=== PATIENT | male | born 1940 | race Two or more races ===

== ENCOUNTER 2025-02-08 00:46 | Inpatient (IN) | payer OTHER ==
[~2025-02-08] VITALS: Ht 167.6 cm; Wt 70.3 kg
--- NOTE | 2025-02-08 00:56 | NUR ---
PTE ALERTA Y ORIENTADO X3. TRANSFER DEL [facility] ACEPTADO POR PARA OPERACION DE VISICULA .
--- NOTE | 2025-02-08 02:11 | NUR ---
SE NOTIFICA A FARA.CROW HAYESA KRISTINE.
[2025-02-08] MEDS ORDERED: RINGERS SOLUTION,LACTATED 1,000 ML IV STA (02:14)
[2025-02-08] MEDS ORDERED: HYOSCYAMINE SULFATE 0.125 MG TAB.SUBL SL ONE (02:15)
[2025-02-08] MEDS ORDERED: HYOSCYAMINE SULFATE 0.125 MG TAB.SUBL ONE (02:16)
[2025-02-08 02:41] LABS: ABG PH 7.446 (7.35-7.45); ABG PO2 60.7 mmHg (80-100); ABG pCO2 27.2 mmHg (35-45); BASE EXCESS -4.1 mmol/l; BICARBONATE 18.3 mmol/l (23-25); SaO2 91.8 %; Tco2 19.2 mmol/l
[2025-02-08 02:52] LABS: MEAN CELL VOLUME 93.2 fL (80.0-100.00); MEAN CORPUSCULAR HEMOGLOBIN 31.2 pg (27.00-32.0); MEAN CORPUSCULAR HGB CONC 33.4 g/dl (32.0-36.0); PLATELET COUNT 224 K/uL (150-450); RED CELL DISTRIBUTION WIDTH 15.7 % (11.5-14.5)
[2025-02-08 03:00] LABS: allen test SATISFACTORY; mode ROOM AIR; o2 21 %; puncture site RADIAL LEFT
[2025-02-08 03:00] LABS: INR 1.36; PARTIAL THROMBOPLASTIN TIME 30.7 SECONDS (22.0-34.0); PROTHROMBIN TIME 14.5 SECONDS (9.0-11.5)
[2025-02-08 03:04] LABS: ALBUMIN 2.8 gm/dL (3.4-5.0); BILIRUBIN TOTAL 1.96 mg/dL (0.3-1.2); BILIRUBIN,CONJUGATED 1.29 mg/dL (0.0-0.2); BILIRUBIN,UNCONJUGATED 0.67 mg/dL (0.0-0.6); CALCIUM 9.4 mg/dL (8.5-10.1); CREATININE SERUM 1.31 mg/dL (0.70-1.30); GLOBULINA 4.6 G/DL (2.4-3.5); POTASSIUM 3.8 mEq/L (3.5-5.1); TOTAL PROTEIN 7.4 gm/dL (6.4-8.2)
--- NOTE | 2025-02-08 06:14 | NUR ---
SE ASISTE A PACIENTE EN CAMBIO DE PANAL Y SE OBSERVA VENDAJE ADHESIVO EN AREA SACRAL. FAMILIAR INDICA QUE PACIENTE TIENE CHENCHO ULCERA SHRADDHA 2 EN AREA SACRAL.
[2025-02-08] MEDS ORDERED: PIPERACILLIN/TAZOBACTAM SODIUM 3.375 GM VIAL IV STA (06:33)
[2025-02-08] MEDS ORDERED: PIPERACILLIN/TAZOBACTAM SODIUM 3.375 GM VIAL IV ONE (06:34)
--- NOTE | 2025-02-08 07:38 | NUR ---
SE RECIBE PACIENTE ALERTA Y ORIENTADO X3, EN [place] POSICION MAS BAJA CON BARANDAS ELEVADAS POR SEGURIDAD. CONECTADO BAJO MONITOR CARDIACO Y OXIMETRIA DE PULSO. PTE CON OXIGENO A 3 LT/MIN CANALIZADO CON ANGIO #18 EN RA CON R/L @ 85 ML/HR. CONSULTADO CON DR. JASSI ESPINOZA.
[2025-02-08 08:36] LABS: URINE APPEARANCE Clear; URINE BILIRRUBIN Negative (NEGATIVE); URINE BLOOD Moderate; URINE COLOR Dark Yellow; URINE KETONE Trace (NEGATIVE); URINE LEUKOCYTE Negative; URINE NITRATE Negative
[2025-02-08 08:39] LABS: URINE BACTERIA 41.6 uL (0.0-1933); URINE CAST 9.13 uL (0.0-1.40); URINE EPITHELIAL CELLS 58.1 uL (0.0-38.8); URINE RBC 17.6 uL (0.0-20.8); URINE WBC 12.6 uL (0.0-23.2)
[2025-02-08 09:00] LABS: URINE GLUCOSE >=1000 MG/DL (NEGATIVE); URINE PROTEIN 100 (NEGATIVE)
[2025-02-08 09:03] LABS: URINE YEAST NEGATIVE /hpf
[2025-02-08] MEDS ORDERED: METRONIDAZOLE/SODIUM CHLORIDE 100 ML IV SCH (17:51)
[2025-02-08] MEDS ORDERED: CIPROFLOXACIN IN 5 % DEXTROSE 200 ML IV SCH (17:51)
[2025-02-08] MEDS ORDERED: PANTOPRAZOLE SODIUM 40 MG in 0.9 % SODIUM CHLORIDE 8 ML IV PUSH SCH (17:53)
[2025-02-08] MEDS ORDERED: MORPHINE SULFATE 2 MG/ML CARTRIDGE IV PRN (18:00)
[2025-02-08] MEDS ORDERED: METOPROLOL TARTRATE 25 MG TABLET PO SCH (18:41)
[2025-02-08] MEDS ORDERED: DEXTROSE 50 % IN WATER 0.5 G/ML DISP.SYRIN IV PRN (18:45)
[2025-02-08] MEDS ORDERED: INSULIN LISPRO 1,000 UNIT/10 ML UNITS SUBCUTANEO PRN (18:45)
[2025-02-08] MEDS ORDERED: DIATRIZOATE MEGLUMINE, SODIUM 30 ML BOTTLE ONE (19:05)
[2025-02-08 19:44] LABS: ALBUMIN 2.2 gm/dL (3.4-5.0); BILIRUBIN TOTAL 1.48 mg/dL (0.3-1.2); BILIRUBIN,CONJUGATED 0.88 mg/dL (0.0-0.2); BILIRUBIN,UNCONJUGATED 0.6 mg/dL (0.0-0.6); TOTAL PROTEIN 6.6 gm/dL (6.4-8.2)
[2025-02-08 21:10] VITALS: BP 109/76; O2SAT 97
[2025-02-09] VITALS (9 sets, daily range): BP systolic 109–121; BP diastolic 54–73; O2SAT 90–99
[2025-02-09] MEDS ORDERED: 0.9 % SODIUM CHLORIDE 1,000 ML IV SCH (19:15)
[2025-02-09 21:41] LABS: CALCIUM 8.9 mg/dL (8.5-10.1); CHOL HDL RATIO 4.7 (0-5.0); CREATININE SERUM 1.33 mg/dL (0.70-1.30); GFR 51.1; POTASSIUM 3.95 mEq/L (3.5-5.1)
[2025-02-10] VITALS (7 sets, daily range): BP systolic 122–132; BP diastolic 77–83; O2SAT 91–100
[2025-02-10 07:36] LABS: ALBUMIN 2.5 gm/dL (3.4-5.0); BILIRUBIN TOTAL 1.36 mg/dL (0.3-1.2); CREATININE SERUM 1.16 mg/dL (0.70-1.30); GFR 59.84; GLOBULINA 4.1 G/DL (2.4-3.5); POTASSIUM 3.61 mEq/L (3.5-5.1); TOTAL PROTEIN 6.6 gm/dL (6.4-8.2)
[2025-02-10] MEDS ORDERED: ENOXAPARIN SODIUM 40 MG/0.4 ML SYRINGE SUBCUTANEO SCH ×2 (09:00→21:00)
[2025-02-10 09:02] LABS: HEMATOCRIT 39.6 % (39.0-48.0); HEMOGLOBIN 13.6 g/dL (13-16.00); MEAN CORPUSCULAR HGB CONC 34.4 g/dl (32.0-36.0); RED BLOOD COUNT 4.26 M/uL (4.00-6.00); RED CELL DISTRIBUTION WIDTH 16.3 % (11.5-14.5)
[2025-02-10 09:05] LABS: PLATELET COUNT 294 K/uL (150-450)
[2025-02-10] MEDS ORDERED: PIPERACILLIN/TAZOBACTAM SODIUM 2.25 GM in 0.9 % SODIUM CHLORIDE 50 ML IV SCH (12:00)
[2025-02-10] MEDS ORDERED: METOCLOPRAMIDE HCL 10 MG in 0.9 % SODIUM CHLORIDE 50 ML IV SCH (12:00)
[2025-02-10] MEDS ORDERED: AMINO ACIDS 4.25 %/DEXTROSE 5% 1,000 ML PERIFERAL SCH (17:00)
[2025-02-11] VITALS (9 sets, daily range): BP systolic 116–127; BP diastolic 72–84; O2SAT 92–98
[2025-02-11] MEDS ORDERED: METOCLOPRAMIDE HCL 10 MG in 0.9 % SODIUM CHLORIDE 50 ML IV SCH (09:00)
[2025-02-11 09:57] LABS: HEMATOCRIT 40.2 % (39.0-48.0); HEMOGLOBIN 13.4 g/dL (13-16.00); MEAN CELL VOLUME 92.5 fL (80.0-100.00); MEAN CORPUSCULAR HEMOGLOBIN 30.9 pg (27.00-32.0); MEAN CORPUSCULAR HGB CONC 33.4 g/dl (32.0-36.0); PLATELET COUNT 272 K/uL (150-450); RED BLOOD COUNT 4.34 M/uL (4.00-6.00); RED CELL DISTRIBUTION WIDTH 16.5 % (11.5-14.5)
[2025-02-11] MEDS ORDERED: fentaNYL CITRATE 50 MCG/ML AMPUL IV PUSH ONE (17:45)
[2025-02-12] VITALS (8 sets, daily range): BP systolic 124–129; BP diastolic 82–86; O2SAT 95–99
[2025-02-13] VITALS (7 sets, daily range): BP systolic 11–131; BP diastolic 75–82; O2SAT 90–100
[2025-02-13 07:10] LABS: HEMOGLOBIN 13.1 g/dL (13-16.00); MEAN CELL VOLUME 95.6 fL (80.0-100.00); MEAN CORPUSCULAR HEMOGLOBIN 31.3 pg (27.00-32.0); MEAN CORPUSCULAR HGB CONC 32.7 g/dl (32.0-36.0); PLATELET COUNT 223 K/uL (150-450); RED BLOOD COUNT 4.18 M/uL (4.00-6.00); RED CELL DISTRIBUTION WIDTH 16.7 % (11.5-14.5)
[2025-02-13 07:22] LABS: ALBUMIN 2.3 gm/dL (3.4-5.0); BILIRUBIN TOTAL 1.05 mg/dL (0.3-1.2); CALCIUM 8.6 mg/dL (8.5-10.1); CREATININE SERUM 0.97 mg/dL (0.70-1.30); GFR 73.56; GLOBULINA 4.3 G/DL (2.4-3.5); POTASSIUM 3.2 mEq/L (3.5-5.1); TOTAL PROTEIN 6.6 gm/dL (6.4-8.2)
[2025-02-13 07:37] LABS: C-REACTIVE PROTEIN 9.76 MG/DL (0.00-0.29)
[2025-02-13 07:41] LABS: ERYTHROCYTE SEDIMENTATION RATE 63 mm/hr
[2025-02-13] MEDS ORDERED: POTASSIUM CHLORIDE IN WATER 100 ML IV SCH (12:00)
[2025-02-14] VITALS (10 sets, daily range): BP systolic 116–138; BP diastolic 75–82; O2SAT 93–99
[2025-02-14 07:44] LABS: CALCIUM 8.3 mg/dL (8.5-10.1); CREATININE SERUM 0.86 mg/dL (0.70-1.30); GFR 84.52; MAGNESIUM 1.9 mg/dL (1.8-2.4); POTASSIUM 3.21 mEq/L (3.5-5.1)
[2025-02-14] MEDS ORDERED: POTASSIUM CHLORIDE IN WATER 100 ML IV NR (09:30)
[2025-02-14] MEDS ORDERED: PIPERACILLIN/TAZOBACTAM SODIUM 3.375 GM in 0.9 % SODIUM CHLORIDE 100 ML IV SCH (12:00)
[2025-02-14] MEDS ORDERED: POTASSIUM CHLORIDE IN WATER 100 ML IV SCH (13:00)
[2025-02-15 01:37] VITALS: O2SAT 99
[2025-02-15 06:09] VITALS: O2SAT 100
[2025-02-15 08:00] VITALS: BP 116/72; O2SAT 99
[2025-02-15 08:14] LABS: CALCIUM 8.3 mg/dL (8.5-10.1); CREATININE SERUM 0.86 mg/dL (0.70-1.30); GFR 84.52; POTASSIUM 3.78 mEq/L (3.5-5.1)
[2025-02-15 08:25] VITALS: O2SAT 100
[2025-02-15 21:34] VITALS: O2SAT 99
[2025-02-16] VITALS (9 sets, daily range): BP systolic 131–134; BP diastolic 80–94; O2SAT 95–99
[2025-02-16 17:59] LABS: HEMATOCRIT 40.3 % (39.0-48.0); HEMOGLOBIN 13.3 g/dL (13-16.00); MEAN CELL VOLUME 93.7 fL (80.0-100.00); MEAN CORPUSCULAR HGB CONC 33.1 g/dl (32.0-36.0); PLATELET COUNT 206 K/uL (150-450); RED CELL DISTRIBUTION WIDTH 16.3 % (11.5-14.5)
[2025-02-16 18:10] LABS: CALCIUM 8.3 mg/dL (8.5-10.1); CREATININE SERUM 0.8 mg/dL (0.70-1.30); GFR 91.87; POTASSIUM 3.3 mEq/L (3.5-5.1)
[2025-02-17] VITALS (8 sets, daily range): BP systolic 107–133; BP diastolic 69–71; O2SAT 90–100
[2025-02-17 12:11] LABS: HEMATOCRIT 38.6 % (39.0-48.0); HEMOGLOBIN 12.6 g/dL (13-16.00); MEAN CELL VOLUME 93.6 fL (80.0-100.00); MEAN CORPUSCULAR HEMOGLOBIN 30.6 pg (27.00-32.0); MEAN CORPUSCULAR HGB CONC 32.7 g/dl (32.0-36.0); PLATELET COUNT 209 K/uL (150-450); RED BLOOD COUNT 4.12 M/uL (4.00-6.00); RED CELL DISTRIBUTION WIDTH 16.4 % (11.5-14.5)
[2025-02-17 13:27] LABS: ALBUMIN 2.1 gm/dL (3.4-5.0); BILIRUBIN TOTAL 1.14 mg/dL (0.3-1.2); CREATININE SERUM 0.78 mg/dL (0.70-1.30); GFR 94.6; GLOBULINA 3.4 G/DL (2.4-3.5); POTASSIUM 3.05 mEq/L (3.5-5.1); TOTAL PROTEIN 5.5 gm/dL (6.4-8.2)
[2025-02-17 13:33] LABS: C-REACTIVE PROTEIN 1.38 MG/DL (0.00-0.29)
[2025-02-18] VITALS (9 sets, daily range): BP systolic 106–139; BP diastolic 62–77; O2SAT 90–100
[2025-02-18 08:21] LABS: HEMOGLOBIN 12.8 g/dL (13-16.00); MEAN CELL VOLUME 92.6 fL (80.0-100.00); MEAN CORPUSCULAR HEMOGLOBIN 31.2 pg (27.00-32.0); MEAN CORPUSCULAR HGB CONC 33.7 g/dl (32.0-36.0); PLATELET COUNT 219 K/uL (150-450); RED BLOOD COUNT 4.11 M/uL (4.00-6.00); RED CELL DISTRIBUTION WIDTH 15.9 % (11.5-14.5)
[2025-02-19] VITALS (7 sets, daily range): BP systolic 114–137; BP diastolic 77–82; O2SAT 90–100
[2025-02-19 14:17] LABS: ABG PH 7.454 (7.35-7.45); ABG pCO2 34.3 mmHg (35-45)
[2025-02-19 14:18] LABS: ABG PO2 55.3 mmHg (80-100)
[2025-02-19 14:19] LABS: BASE EXCESS 0.2 mmol/l; BICARBONATE 23.5 mmol/l (23-25); SaO2 90.1 %; Tco2 24.6 mmol/l; allen test SATISFACTORY; mode ROOM AIR; o2 21 %; puncture site RADIAL LEFT
[2025-02-19 14:21] LABS: HEMATOCRIT 38.8 % (39.0-48.0); HEMOGLOBIN 12.8 g/dL (13-16.00); MEAN CELL VOLUME 92.4 fL (80.0-100.00); MEAN CORPUSCULAR HEMOGLOBIN 30.5 pg (27.00-32.0); MEAN CORPUSCULAR HGB CONC 33.1 g/dl (32.0-36.0); PLATELET COUNT 239 K/uL (150-450)
[2025-02-19] MEDS ORDERED: DEXTROSE 50 % IN WATER 0.5 G/ML VIAL IV PRN (14:30)
[2025-02-19] MEDS ORDERED: FUROsemide 20 MG/2 ML VIAL IV SCH (23:13)
[2025-02-20] VITALS (8 sets, daily range): BP systolic 144–151; BP diastolic 76–91; O2SAT 95–100
[2025-02-20 01:26] LABS: INFLUENZA A AG NEGATIVE (NEGATIVE)
[2025-02-20 08:11] LABS: ABG PH 7.468 (7.35-7.45); ABG pCO2 33.8 mmHg (35-45); BASE EXCESS 0.8 mmol/l; BICARBONATE 23.9 mmol/l (23-25); SaO2 91.3 %; Tco2 24.9 mmol/l
[2025-02-20 08:19] LABS: allen test SATISFACTORY; o2 21 %; puncture site RADIAL LEFT
[2025-02-20 08:20] LABS: mode ROOM AIR
[2025-02-21] VITALS (9 sets, daily range): BP systolic 114–135; BP diastolic 76–79; O2SAT 90–100
[2025-02-21 08:24] LABS: CALCIUM 8.4 mg/dL (8.5-10.1); CREATININE SERUM 0.8 mg/dL (0.70-1.30); GFR 91.87
[2025-02-21] MEDS ORDERED: FUROsemide 20 MG/2 ML VIAL IV SCH (09:00)
[2025-02-21 10:06] LABS: POTASSIUM 2.94 mEq/L (3.5-5.1)
[2025-02-21] MEDS ORDERED: POTASSIUM CHLORIDE IN WATER 100 ML IV NR (11:15)
[2025-02-21] MEDS ORDERED: POTASSIUM CHLORIDE IN WATER 40 MEQ/100 ML PIGGYBAG IV SCH (13:00)
[2025-02-22] VITALS (9 sets, daily range): BP systolic 125–147; BP diastolic 77–82; O2SAT 94–99
[2025-02-22 07:35] LABS: HEMATOCRIT 37.3 % (39.0-48.0); HEMOGLOBIN 12.4 g/dL (13-16.00); MEAN CELL VOLUME 93.4 fL (80.0-100.00); MEAN CORPUSCULAR HEMOGLOBIN 31.1 pg (27.00-32.0); MEAN CORPUSCULAR HGB CONC 33.3 g/dl (32.0-36.0); PLATELET COUNT 209 K/uL (150-450); RED CELL DISTRIBUTION WIDTH 16.2 % (11.5-14.5)
[2025-02-22 07:47] LABS: ALBUMIN 2.3 gm/dL (3.4-5.0); BILIRUBIN TOTAL 1.19 mg/dL (0.3-1.2); CALCIUM 8.4 mg/dL (8.5-10.1); CREATININE SERUM 0.84 mg/dL (0.70-1.30); GFR 86.84; GLOBULINA 3.7 G/DL (2.4-3.5)
[2025-02-22 08:43] LABS: POTASSIUM 2.92 mEq/L (3.5-5.1)
[2025-02-22] MEDS ORDERED: POTASSIUM CHLORIDE IN WATER 100 ML IV NR (12:00)
[2025-02-22] MEDS ORDERED: MAGNESIUM SULFATE IN WATER 50 ML IV NR (12:00)
[2025-02-22] MEDS ORDERED: METOCLOPRAMIDE HCL 5 MG/ML VIAL ONE (15:26)
[2025-02-22] MEDS ORDERED: SPIRONOLACTONE 25 MG TABLET PO SCH (17:00)
[2025-02-23] VITALS (9 sets, daily range): BP systolic 109–118; BP diastolic 69–79; O2SAT 97–100
[2025-02-23 21:31] LABS: TP PLEURAL FLUID 1.2 g/dl
[2025-02-23 21:41] LABS: PLEURAL FLUID APPEARANCE CRYSTAL CLEAR; PLEURAL FLUID COLOR YELLOW
[2025-02-23 22:08] LABS: MONONUCLEAR 89 %; POLYMORPHONUCLEAR 11 %
[2025-02-24 00:06] VITALS: O2SAT 97
[2025-02-25] VITALS (9 sets, daily range): BP systolic 115–130; BP diastolic 73–84; O2SAT 89–99
[2025-02-25 11:16] LABS: ABG PH 7.512 (7.35-7.45); ABG PO2 87.5 mmHg (80-100); BASE EXCESS 10.2 mmol/l; BICARBONATE 34.5 mmol/l (23-25); SaO2 97.8 %; Tco2 35.8 mmol/l
[2025-02-25 11:17] LABS: allen test SATISFACTORY; mode NASAL CANNULA; o2 24 %; puncture site RADIAL RIGHT
== END 2025-02-25 23:03 | disposition home or self-care (01) | DRG 444 ==
LOC: ER 00:46 → SURG 18:41 → SURH 02-21 16:58
PROVIDERS: General Practice; Internal Medicine; Radiology Vascular & Interventional Radiology; Student in an Organized Health Care Education/Training Program; Surgery; ADMIT Student in an Organized Health Care Education/Training Program; ATTEND Student in an Organized Health Care Education/Training Program
PROC: BW40ZZZ Ultrasonography of Abdomen (ICD-10-PCS; 2025-02-08)
PROC: BW21YZZ Computerized Tomography (CT Scan) of Abdomen and Pelvis using Other Contrast (ICD-10-PCS; 2025-02-08)
PROC: 0D9670Z Drainage of Stomach with Drainage Device, Via Natural or Artificial Opening (ICD-10-PCS; 2025-02-08)
PROC: 4A12X4Z Monitoring of Cardiac Electrical Activity, External Approach (ICD-10-PCS; 2025-02-09)
PROC: 0D20XUZ Change Feeding Device in Upper Intestinal Tract, External Approach (ICD-10-PCS; 2025-02-09)
PROC: B246ZZZ Ultrasonography of Right and Left Heart (ICD-10-PCS; 2025-02-10)
PROC: 3E0336Z Introduction of Nutritional Substance into Peripheral Vein, Percutaneous Approach (ICD-10-PCS; 2025-02-10)
PROC: 0F9430Z Drainage of Gallbladder with Drainage Device, Percutaneous Approach (ICD-10-PCS; principal; 2025-02-11)
PROC: 02HV33Z Insertion of Infusion Device into Superior Vena Cava, Percutaneous Approach (ICD-10-PCS; 2025-02-16)
PROC: BB24YZZ Computerized Tomography (CT Scan) of Bilateral Lungs using Other Contrast (ICD-10-PCS; 2025-02-20)
PROC: 0W993ZZ Drainage of Right Pleural Cavity, Percutaneous Approach (ICD-10-PCS; 2025-02-23)
PROC: 0W9B3ZZ Drainage of Left Pleural Cavity, Percutaneous Approach (ICD-10-PCS; 2025-02-24)
DX: K81.0 Acute cholecystitis (principal); I50.23 Acute on chronic systolic (congestive) heart failure; J90 Pleural effusion, not elsewhere classified; K56.7 Ileus, unspecified; J98.11 Atelectasis; I44.1 Atrioventricular block, second degree; I35.0 Nonrheumatic aortic (valve) stenosis; K59.00 Constipation, unspecified; E87.6 Hypokalemia; R09.02 Hypoxemia; I11.0 Hypertensive heart disease with heart failure; E11.9 Type 2 diabetes mellitus without complications; Z95.0 Presence of cardiac pacemaker; F17.210 Nicotine dependence, cigarettes, uncomplicated; B95.2 Enterococcus as the cause of diseases classified elsewhere

== ENCOUNTER 2025-06-02 02:39 | Inpatient (IN) | payer OTHER ==
[~2025-06-02] VITALS: Ht 152.4 cm; Wt 68.0 kg
[2025-06-02] MEDS ORDERED: METFORMIN HCL500 M3 (02:52)
[2025-06-02] MEDS ORDERED: NASAL MIST126 ML (02:52)
[2025-06-02] MEDS ORDERED: ELIQUIS2.5 MG PO (02:52)
[2025-06-02] MEDS ORDERED: JARDIANCE10 MG (02:52)
[2025-06-02] MEDS ORDERED: 0.9 % SODIUM CHLORIDE 1,000 ML IV STA (03:35)
[2025-06-02 04:20] LABS: BASO % 0.2 % (0.1-1.2); EOS # 0.00 (0.04-0.54); EOS % 0.0 % (0.7-7.0); LYMPH # 0.46 (1.18-3.74); LYMPH % 2.6 % (19.3-53.1); MEAN PLATELET VOLUME 10.20 fl (9.4-12.4); MONO # 0.74 (0.24-0.82); MONO % 4.2 % (4.7-12.5); NEUT # 16.18 (1.56-6.13); NEUT % 92.3 % (34.0-71.1); RED CELL DISTRIBUTION WIDTH 17.2 % (11.6-14.4)
[2025-06-02 04:38] LABS: INR 1.27
[2025-06-02 04:43] LABS: ALT/SGPT 209.0 U/L (12-78); AST/SGOT 263.0 U/L (15-37); BILIRUBIN TOTAL 3.66 mg/dL (0.3-1.2); BILIRUBIN,CONJUGATED 2.78 mg/dL (0.0-0.2); BUN CREA RATIO 23.0 (7.0-25.0); CREATININE SERUM 1.23 mg/dL (0.70-1.30); GFR 55.93; GLOBULINA 4.4 G/DL (2.4-3.5); GLUCOSE FASTING 140.0 mg/dL (65-100); OSMOLALITY SERUM 282.0 MOSM/KG (275-295)
[2025-06-02] MEDS ORDERED: PIPERACILLIN/TAZOBACTAM SODIUM 3.375 GM VIAL IV STA (05:36)
[2025-06-02] MEDS ORDERED: MEPERIDINE HCL/PF 25 MG/ML VIAL IV PRN (08:00)
[2025-06-02] MEDS ORDERED: ENALAPRILAT DIHYDRATE 1.25 MG/ML VIAL IV PRN (08:00)
[2025-06-02] MEDS ORDERED: ONDANSETRON HCL 2 MG/ML VIAL IV PRN (08:00)
[2025-06-02 09:38] VITALS: BP 92/61
[2025-06-02] MEDS ORDERED: PIPERACILLIN/TAZOBACTAM SODIUM 3.375 GM VIAL IV SCH (12:00)
[2025-06-02 16:41] VITALS: BP 94/63; O2SAT 97
[2025-06-02 23:21] LABS: URINE APPEARANCE Cloudy; URINE BILIRRUBIN Negative (NEGATIVE); URINE BLOOD Trace; URINE COLOR Yellow; URINE KETONE Trace (NEGATIVE); URINE LEUKOCYTE Negative; URINE NITRATE Negative; URINE PROTEIN 30 (NEGATIVE); URINE UROBILINOGEN 1.0 E.U./dl
[2025-06-02 23:24] LABS: URINE BACTERIA 13.1 uL (0.0-1933); URINE EPITHELIAL CELLS 17.0 uL (0.0-38.8); URINE RBC 3.6 uL (0.0-20.8); URINE WBC 2.9 uL (0.0-23.2)
[2025-06-02 23:59] LABS: URINE CAST 0.43 uL (0.0-1.40); URINE GLUCOSE >=1000 MG/DL (NEGATIVE)
[2025-06-03 00:04] LABS: TYPE CELLS SQUAMOUS
[2025-06-03 01:47] VITALS: BP 93/60; O2SAT 98
[2025-06-03 04:37] LABS: BASO % 0.5 % (0.1-1.2); EOS # 0.07 (0.04-0.54); EOS % 0.5 % (0.7-7.0); LYMPH # 0.96 (1.18-3.74); LYMPH % 7.2 % (19.3-53.1); MEAN PLATELET VOLUME 10.90 fl (9.4-12.4); MONO # 0.95 (0.24-0.82); MONO % 7.2 % (4.7-12.5); NEUT # 11.17 (1.56-6.13); NEUT % 84.2 % (34.0-71.1); RED CELL DISTRIBUTION WIDTH 17.2 % (11.6-14.4)
[2025-06-03 06:21] LABS: ALT/SGPT 125.0 U/L (12-78); AST/SGOT 85.0 U/L (15-37); BILIRUBIN TOTAL 1.43 mg/dL (0.3-1.2); BUN CREA RATIO 31.0 (7.0-25.0); CREATININE SERUM 1.09 mg/dL (0.70-1.30); GFR 64.29; GLOBULINA 3.6 G/DL (2.4-3.5); GLUCOSE FASTING 91.0 mg/dL (65-100); OSMOLALITY SERUM 287.0 MOSM/KG (275-295)
[2025-06-03 08:44] VITALS: BP 107/60; O2SAT 97
[2025-06-03 17:19] VITALS: BP 120/68; O2SAT 97
[2025-06-03] MEDS ORDERED: MIDAZOLAM HCL 2 MG/2 ML VIAL IV PUSH ONE (18:00)
[2025-06-03] MEDS ORDERED: fentaNYL CITRATE 50 MCG/ML AMPUL IV PUSH ONE (18:00)
[2025-06-04 02:31] VITALS: BP 114/69; O2SAT 96
[2025-06-04 07:59] VITALS: BP 140/60
[2025-06-04] MEDS ORDERED: TAMSULOSIN HCL 0.4 MG CAP PO SCH (09:00)
[2025-06-04 17:24] VITALS: BP 112/70; O2SAT 100
[2025-06-05 02:10] VITALS: BP 114/68; O2SAT 97
[2025-06-05 06:43] LABS: BASO % 0.7 % (0.1-1.2); EOS # 0.13 (0.04-0.54); EOS % 1.2 % (0.7-7.0); LYMPH # 0.92 (1.18-3.74); LYMPH % 8.8 % (19.3-53.1); MEAN PLATELET VOLUME 11.40 fl (9.4-12.4); MONO # 0.84 (0.24-0.82); MONO % 8.0 % (4.7-12.5); NEUT # 8.44 (1.56-6.13); NEUT % 80.8 % (34.0-71.1); RED CELL DISTRIBUTION WIDTH 17.0 % (11.6-14.4)
[2025-06-05 07:42] LABS: ALT/SGPT 61.0 U/L (12-78); AST/SGOT 23.0 U/L (15-37); BILIRUBIN TOTAL 1.04 mg/dL (0.3-1.2); BUN CREA RATIO 22.0 (7.0-25.0); CREATININE SERUM 0.99 mg/dL (0.70-1.30); GFR 71.84; GLOBULINA 3.6 G/DL (2.4-3.5); GLUCOSE FASTING 112.0 mg/dL (65-100); OSMOLALITY SERUM 283.0 MOSM/KG (275-295)
[2025-06-05 09:15] VITALS: BP 102/66; O2SAT 98
[2025-06-05] MEDS ORDERED: AZTREONAM 2,000 MG VIAL IV SCH (13:00)
[2025-06-05] MEDS ORDERED: CEFTAZIDIME/AVIBACTAM 2.5 GM VIAL IV SCH (13:00)
[2025-06-05] MEDS ORDERED: VANCOMYCIN HCL 1,000 MG VIAL IV SCH (17:00)
[2025-06-05 17:07] VITALS: BP 101/61; O2SAT 99
[2025-06-06 01:22] VITALS: BP 100/66
[2025-06-06 09:48] VITALS: BP 118/75; O2SAT 97
[2025-06-06 17:48] VITALS: BP 110/70; O2SAT 97
[2025-06-07 01:59] VITALS: BP 93/70
[2025-06-07 10:17] VITALS: BP 116/71
[2025-06-07 17:44] VITALS: BP 102/66
[2025-06-08 01:53] VITALS: BP 98/59
[2025-06-08 09:08] VITALS: BP 106/71; O2SAT 97
[2025-06-08] MEDS ORDERED: DIATRIZOATE MEGLUMINE, SODIUM 30 ML BOTTLE PO STA (09:20)
[2025-06-08 17:25] VITALS: BP 100/65
[2025-06-09 01:01] VITALS: BP 111/69
[2025-06-09 08:21] VITALS: BP 104/67
[2025-06-09 16:03] VITALS: BP 95/54
[2025-06-10 01:56] VITALS: BP 107/72
[2025-06-10 08:39] VITALS: BP 107/66; O2SAT 98
[2025-06-10 08:54] LABS: BASO % 1.1 % (0.1-1.2); EOS # 0.21 (0.04-0.54); EOS % 2.6 % (0.7-7.0); LYMPH # 0.86 (1.18-3.74); LYMPH % 10.4 % (19.3-53.1); MEAN PLATELET VOLUME 10.30 fl (9.4-12.4); MONO # 0.75 (0.24-0.82); MONO % 9.1 % (4.7-12.5); NEUT # 6.23 (1.56-6.13); NEUT % 75.7 % (34.0-71.1); RED CELL DISTRIBUTION WIDTH 17.4 % (11.6-14.4)
[2025-06-10 09:32] LABS: BUN CREA RATIO 19.0 (7.0-25.0); CREATININE SERUM 0.72 mg/dL (0.70-1.30); GFR 103.75; GLUCOSE FASTING 115.0 mg/dL (65-100); OSMOLALITY SERUM 286.0 MOSM/KG (275-295)
[2025-06-10 17:48] VITALS: BP 101/66
[2025-06-11 03:07] VITALS: BP 113/77; O2SAT 99
[2025-06-11 09:50] VITALS: BP 112/71; O2SAT 98
[2025-06-11 17:55] VITALS: BP 101/58
[2025-06-12 01:36] VITALS: BP 168/68; BP 97/67; O2SAT 96; O2SAT 97
[2025-06-12 08:57] VITALS: BP 120/76; O2SAT 97
[2025-06-12 18:41] VITALS: BP 99/62
[2025-06-13 02:50] VITALS: BP 117/78; O2SAT 98
[2025-06-13 09:38] VITALS: BP 130/82; O2SAT 96
[2025-06-13] MEDS ORDERED: TAMS0.4C PO (12:37)
[2025-06-13] MEDS ORDERED: ELIQUIS2.5 MG PO (12:37)
== END 2025-06-13 13:56 | disposition home or self-care (01) | DRG 444 ==
LOC: ER 02:39 → SEC-K 07:55 → MEDI 07:55 → MEDJ 06-05 10:42
PROVIDERS: Internal Medicine Infectious Disease; ADMIT Internal Medicine; ATTEND Internal Medicine
PROC: BW21ZZZ Computerized Tomography (CT Scan) of Abdomen and Pelvis (ICD-10-PCS; principal; 2025-06-02)
PROC: 0W9F3ZZ Drainage of Abdominal Wall, Percutaneous Approach (ICD-10-PCS; 2025-06-03)
PROC: 8E0ZXY6 Isolation (ICD-10-PCS; 2025-06-05)
PROC: BW21YZZ Computerized Tomography (CT Scan) of Abdomen and Pelvis using Other Contrast (ICD-10-PCS; 2025-06-08)
PROC: B246ZZZ Ultrasonography of Right and Left Heart (ICD-10-PCS; 2025-06-08)
PROC: CF1C1ZZ Planar Nuclear Medicine Imaging of Hepatobiliary System, All using Technetium 99m (Tc-99m) (ICD-10-PCS; 2025-06-11)
DX: K80.10 Calculus of gallbladder with chronic cholecystitis without obstruction (principal); K65.1 Peritoneal abscess; I10 Essential (primary) hypertension; I48.91 Unspecified atrial fibrillation